=== PATIENT | female | born 1995 | race Caucasian/White ===

== ENCOUNTER 2018-01-23 11:05 | Emergency (ER) | payer SELFPAY ==
[~2018-01-23] VITALS: Ht 165.1 cm; Wt 50.0 kg
[2018-01-23] MEDS ORDERED: LORazepam 2 MG/ML, 1ML ONE (11:49)
[2018-01-23] MEDS ORDERED: ONDANSETRON ODT 4 MG ONE (11:51)
[2018-01-23] MEDS ORDERED: SODIUM CHLORIDE 0.9% 1,000ML IVBOLUS ONE ×2 (12:00→14:00)
[2018-01-23] MEDS ORDERED: ONDANSETRON ODT 4 MG PO ONE (12:00)
[2018-01-23] MEDS ORDERED: RANITIDINE 50 MG in SODIUM CHLORIDE 0.9% 100 ML IV ONE (12:00)
[2018-01-23] MEDS ORDERED: LORazepam 2 MG/ML, 1ML IVPush ONE (12:00)
[2018-01-23] MEDS ORDERED: SODIUM CHLORIDE FLUSH 10ML SYR IVF ONE (12:00)
[2018-01-23] MEDS ORDERED: FAMOTIDINE 20 MG/2 ML IVP ONE (12:00)
[2018-01-23 12:11] LABS: BASOPHILS # (AUTO) 0.07 x10^3/uL (0-0.1); BASOPHILS % (AUTO) 1 % (0-1); EOSINOPHILS % (AUTO) 0 % (1-7); LYMPHOCYTES % (AUTO) 9 % (22-44); MD NO; MEAN CORPUSCULAR HEMOGLOBIN 31.4 pg (27.0-34.8); MEAN CORPUSCULAR HGB CONC 34.6 g/dL (32.4-35.8); MEAN CORPUSCULAR VOLUME 90.8 fL (80-100); MONOCYTES # (AUTO) 1.28 x10^3/uL (0.2-0.8); MONOCYTES % (AUTO) 9 % (2-9); NEUTROPHILS # (AUTO) 11.61 x10^3/uL (1.8-6.8); NEUTROPHILS % (AUTO) 81 % (42-75); PLATELET COUNT 378 x10^3/uL (130-400); RED BLOOD COUNT 5.13 x10^6/uL (3.82-5.3); RED CELL DISTRIBUTION WIDTH 12.1 % (9.6-15.2)
[2018-01-23 12:20] LABS: ALBUMIN 4.7 g/dL (3.4-5.0); ANION GAP 10 mmol/L (5-15); CALCIUM 9.4 mg/dL (8.5-10.1); CHLORIDE 100 mmol/L (98-107)
[2018-01-23 12:26] LABS: ALANINE AMINOTRANSFERASE 23 U/L (12-78); ALKALINE PHOSPHATASE 45 U/L (45-117); BILIRUBIN,TOTAL 1.7 mg/dL (0.2-1.0); CREATININE 0.89 mg/dL (0.55-1.02); TOTAL PROTEIN 9.1 g/dL (6.4-8.2)
[2018-01-23 14:37] VITALS: BP 95/56
== END 2018-01-23 15:46 | disposition home or self-care (01) ==
LOC: ED 12:30
DX: E86.0 Dehydration (principal); R11.2 Nausea with vomiting, unspecified
CPT/HCPCS: 36415; 74021; 80053; 83690; 84703; 85025; 96361; 96365; 96375; 99285; J2060; J2780; J7030; Q0162

== ENCOUNTER 2019-05-23 22:04 | Emergency (ER) | payer SELFPAY ==
[~2019-05-23] VITALS: Ht 165.1 cm; Wt 52.3 kg
[2019-05-23] MEDS ORDERED: ESCI10TA10 PO (22:41)
--- NOTE | 2019-05-23 22:41 | NUR ---
PT HERE FOR N/V X 2 DAYS. VSS. PT RESTING WITH NO NEEDS AT THIS TIME. CALL LIGHT IN REACH
[2019-05-23 22:57] LABS: BASOPHILS # (AUTO) 0.03 x10^3/uL (0-0.1); BASOPHILS % (AUTO) 0 % (0-1); EOSINOPHILS # (AUTO) 0.09 x10^3/uL (0-0.4); EOSINOPHILS % (AUTO) 1 % (1-7); LYMPHOCYTES # (AUTO) 1.09 x10^3/uL (1-3.4); LYMPHOCYTES % (AUTO) 8 % (22-44); MD NO; MEAN CORPUSCULAR HEMOGLOBIN 31.4 pg (27.0-34.8); MEAN CORPUSCULAR HGB CONC 33.6 g/dL (32.4-35.8); MEAN CORPUSCULAR VOLUME 93.4 fL (80-100); MONOCYTES # (AUTO) 1.09 x10^3/uL (0.2-0.8); MONOCYTES % (AUTO) 8 % (2-9); NEUTROPHILS # (AUTO) 12.28 x10^3/uL (1.8-6.8); NEUTROPHILS % (AUTO) 84 % (42-75); PLATELET COUNT 353 x10^3/uL (130-400); RED BLOOD COUNT 5.09 x10^6/uL (3.82-5.3); RED CELL DISTRIBUTION WIDTH 12.1 % (9.6-15.2)
[2019-05-23 23:10] LABS: ALANINE AMINOTRANSFERASE 21 U/L (12-78); ALBUMIN 4.7 g/dL (3.4-5.0); ANION GAP 13 mmol/L (5-15); CALCIUM 9.4 mg/dL (8.5-10.1); CHLORIDE 97 mmol/L (98-107); CREATININE 0.93 mg/dL (0.55-1.02)
[2019-05-23 23:14] LABS: ALKALINE PHOSPHATASE 51 U/L (45-117); BILIRUBIN,TOTAL 1.4 mg/dL (0.2-1.0)
[2019-05-23] MEDS ORDERED: LORazepam 2 MG/ML, 1ML ONE (23:18)
[2019-05-23] MEDS ORDERED: FAMOTIDINE 20 MG/2 ML ONE (23:18)
[2019-05-23] MEDS ORDERED: FAMOTIDINE 20 MG/2 ML IVP ONE (23:30)
[2019-05-23] MEDS ORDERED: POTASSIUM CHLORIDE 20 MEQ in SODIUM CHLORIDE 0.9% 250 ML IV ONE (23:30)
[2019-05-23] MEDS ORDERED: SODIUM CHLORIDE 0.9% 1,000ML IVBOLUS ONE (23:30)
[2019-05-23] MEDS ORDERED: LORazepam 2 MG/ML, 1ML IVPush ONE (23:30)
--- NOTE | 2019-05-23 23:45 | NUR ---
PIV PLACED. PT MEDICATED AND FLUIDS RUNNING. VSS. CALL LIGHT IN REACH
--- NOTE | 2019-05-24 00:20 | NUR ---
PT RESTING. FLUIDS INFUSING. CALL LIGHT IN REACH
[2019-05-24] MEDS ORDERED: POTASSIUM CHLORIDE 20 MEQ TAB.ER.PRT PO ONE (00:30)
[2019-05-24] MEDS ORDERED: POTASSIUM CHLORIDE 20 MEQ TAB.ER.PRT ONE (00:36)
[2019-05-24 01:39] VITALS: BP 115/71
--- NOTE | 2019-05-24 01:41 | NUR ---
Patient given discharge instructions and they have confirmed that they understand the instructions. Patient ambulatory with steady gait.
== END 2019-05-24 01:44 | disposition home or self-care (01) ==
LOC: ED 22:58
DX: E87.6 Hypokalemia (principal); A09 Infectious gastroenteritis and colitis, unspecified; R11.2 Nausea with vomiting, unspecified; F43.10 Post-traumatic stress disorder, unspecified; F32.9 Major depressive disorder, single episode, unspecified; F41.1 Generalized anxiety disorder
CPT/HCPCS: 36415; 80053; 83690; 84703; 85025; 93005; 96365; 96366; 96375; 99284; J2060; J3480; J3490; J7030; J7050

== ENCOUNTER 2021-03-17 10:46 | Emergency (ER) | payer SELFPAY ==
[~2021-03-17] VITALS: Ht 165.1 cm; Wt 57.0 kg
[~2021-03-17 10:46] MED LIST: ESCI10TA10 PO
[2021-03-17] MEDS ORDERED: SODIUM CHLORIDE 0.9% 1,000ML IVBOLUS ONE (12:00)
[2021-03-17] MEDS ORDERED: ONDANSETRON 2MG/ML, 2ML IVPush ONE (12:00)
[2021-03-17] MEDS ORDERED: FAMOTIDINE 20 MG/2 ML IVPush ONE (12:00)
[2021-03-17 12:19] LABS: BASOPHILS % (AUTO) 1 % (0-1); EOSINOPHILS % (AUTO) 0 % (1-7); LYMPHOCYTES % (AUTO) 22 % (22-44); MEAN CORPUSCULAR HEMOGLOBIN 31.1 pg (27.0-34.8); MEAN CORPUSCULAR HGB CONC 34.9 g/dL (32.4-35.8); MEAN PLATELET VOLUME 7.8 fL (7.4-10.4); MONOCYTES % (AUTO) 9 % (2-9); NEUTROPHILS % (AUTO) 68 % (42-75); PLATELET COUNT 340 x10^3/uL (130-400); RED BLOOD COUNT 5.17 x10^6/uL (3.82-5.3); RED CELL DISTRIBUTION WIDTH 12.4 % (9.6-15.2)
[2021-03-17 12:20] LABS: MD NO
[2021-03-17 12:27] LABS: ALBUMIN 4.6 g/dL (3.4-5.0); ANION GAP 9 mmol/L (5-15); CALCIUM 9.6 mg/dL (8.5-10.1); CHLORIDE 100 mmol/L (98-107)
[2021-03-17 12:32] LABS: ALANINE AMINOTRANSFERASE 18 U/L (12-78); ALKALINE PHOSPHATASE 47 U/L (45-117); BILIRUBIN,TOTAL 1.4 mg/dL (0.2-1.0); CREATININE 0.77 mg/dL (0.55-1.02); TOTAL PROTEIN 8.5 g/dL (6.4-8.2)
--- NOTE | 2021-03-17 13:48 | NUR ---
PATIENT TO ROOM FROM 21
[2021-03-17] MEDS ORDERED: ONDANSETRON 2MG/ML, 2ML ONE (14:11)
[2021-03-17] MEDS ORDERED: FAMOTIDINE 20 MG/2 ML ONE (14:11)
--- NOTE | 2021-03-17 14:15 | NUR ---
Pt unable to give UA sample at this time. Aware of needed sample when able.
--- NOTE | 2021-03-17 14:29 | NUR ---
wire rigger completed. IV started with aseptic technique and IV meds given with NS 1 liter bolus running wide open. Lights dimmed, call light in reach, comfort measures provided, and pt using blanket from home.
[2021-03-17 16:28] VITALS: BP 103/64
== END 2021-03-17 16:30 | disposition home or self-care (01) ==
LOC: ED 14:02
DX: R11.2 Nausea with vomiting, unspecified (principal); R10.10 Upper abdominal pain, unspecified
CPT/HCPCS: 36415; 80053; 84703; 85025; 96361; 96374; 96375; 99284; J2405; J7030

== ENCOUNTER 2021-06-20 11:03 | Observation (INO) | payer SELFPAY ==
[~2021-06-20] VITALS: Ht 167.6 cm; Wt 63.9 kg
[2021-06-20] MEDS ORDERED: HALOPERIDOL 5 MG/ML IV ONE (12:00)
[2021-06-20] MEDS ORDERED: SODIUM CHLORIDE FLUSH 10ML SYR IVF ONE (12:00)
[2021-06-20] MEDS ORDERED: FAMOTIDINE 20 MG/2 ML IVPush ONE (12:00)
[2021-06-20] MEDS ORDERED: ONDANSETRON 2MG/ML, 2ML IVPush ONE (12:00)
[2021-06-20] MEDS ORDERED: SODIUM CHLORIDE 0.9% 1,000ML IVBOLUS ONE (12:00)
--- NOTE | 2021-06-20 12:30 | NUR ---
Pt to room from lobby at this time.
[2021-06-20] MEDS ORDERED: ONDANSETRON 2MG/ML, 2ML ONE (12:46)
[2021-06-20] MEDS ORDERED: HALOPERIDOL 5 MG/ML ONE (12:46)
[2021-06-20] MEDS ORDERED: FAMOTIDINE 20 MG/2 ML ONE (12:46)
[2021-06-20 12:52] LABS: BASOPHILS % (AUTO) 0 % (0-1); EOSINOPHILS % (AUTO) 0 % (1-7); LYMPHOCYTES % (AUTO) 15 % (22-44); MEAN CORPUSCULAR HEMOGLOBIN 31.1 pg (27.0-34.8); MEAN CORPUSCULAR HGB CONC 35.3 g/dL (32.4-35.8); MEAN PLATELET VOLUME 8.3 fL (7.4-10.4); MONOCYTES % (AUTO) 11 % (2-9); NEUTROPHILS % (AUTO) 73 % (42-75); PLATELET COUNT 415 x10^3/uL (130-400); RED BLOOD COUNT 5.81 x10^6/uL (3.82-5.3); RED CELL DISTRIBUTION WIDTH 12.1 % (9.6-15.2)
[2021-06-20 12:55] LABS: ALBUMIN 4.9 g/dL (3.4-5.0); CALCIUM 9.6 mg/dL (8.5-10.1); CHLORIDE 96 mmol/L (98-107)
[2021-06-20 13:01] LABS: ALANINE AMINOTRANSFERASE 18 U/L (12-78); ALKALINE PHOSPHATASE 56 U/L (45-117); BILIRUBIN,TOTAL 1.6 mg/dL (0.2-1.0); CREATININE 1.02 mg/dL (0.55-1.02); TOTAL PROTEIN 9.8 g/dL (6.4-8.2)
--- NOTE | 2021-06-20 13:02 | NUR ---
PT MEDICATED PER MAR.
[2021-06-20 13:08] LABS: ANION GAP 12 mmol/L (5-15)
[2021-06-20] MEDS ORDERED: NS + 40MEQ KCL 1,000 ML IV ONE (13:18)
[2021-06-20] MEDS ORDERED: SODIUM CHLORIDE FLUSH 10ML SYR IVF PRN (13:30)
[2021-06-20] MEDS ORDERED: NS + 40MEQ KCL 1,000 ML IV SCH (13:30)
[2021-06-20] MEDS ORDERED: POTASSIUM CHLORIDE 20 MEQ in SODIUM CHLORIDE 0.9% 1,000 ML IV ONE (14:00)
--- NOTE | 2021-06-20 14:34 | NUR ---
REPORT TO [facility].
[2021-06-20] MEDS ORDERED: PROMETHAZINE 25 MG/ML, 1ML IM PRN (15:00)
[2021-06-20] MEDS ORDERED: POTASSIUM CHLORIDE 60 MEQ in SODIUM CHLORIDE 0.9% 1,000 ML IV ONE (15:00)
[2021-06-20] MEDS ORDERED: ACETAMINOPHEN 325 MG TABLET PO PRN (15:00)
[2021-06-20] MEDS ORDERED: ONDANSETRON 2MG/ML, 2ML IVPush PRN (15:00)
[2021-06-20] MEDS ORDERED: ONDANSETRON ODT 4 MG PO PRN (15:00)
[2021-06-20] MEDS ORDERED: NS + 20MEQ KCL 1,000 ML IV SCH (15:00)
[2021-06-20 16:30] VITALS: BP 104/66
[2021-06-20] MEDS: NS + 40MEQ KCL 1,000 ML IV SCH (19:39)
[2021-06-20 20:13] VITALS: BP 104/68
[2021-06-21 00:13] VITALS: BP 97/63
[2021-06-21] MEDS: NS + 40MEQ KCL 1,000 ML IV SCH (03:54)
[2021-06-21 06:20] VITALS: BP 122/81
[2021-06-21 06:32] LABS: CHLORIDE 111 mmol/L (98-107)
[2021-06-21 06:37] LABS: ANION GAP 8 mmol/L (5-15); CALCIUM 8.6 mg/dL (8.5-10.1); CREATININE 0.77 mg/dL (0.55-1.02)
[2021-06-21] MEDS ORDERED: PANTOPRAZOLE 40 MG IV IVPush SCH (07:30)
[2021-06-21] MEDS ORDERED: ONDA4TAB13 PO (08:38)
== END 2021-06-21 10:35 | disposition home or self-care (01) ==
LOC: ED 13:16 → INTOOBSV 13:17 → 3N 13:17 → ED 13:17 → UNDOADMIN 16:02 → 3N 16:02
PROVIDERS: ADMIT Family Medicine; ATTEND Family Medicine
DX: R11.2 Nausea with vomiting, unspecified (principal); E87.6 Hypokalemia; E86.0 Dehydration; D75.1 Secondary polycythemia; F12.90 Cannabis use, unspecified, uncomplicated; F41.8 Other specified anxiety disorders; F43.10 Post-traumatic stress disorder, unspecified; Z79.899 Other long term (current) drug therapy
CPT/HCPCS: 36415; 80048; 80053; 83735; 84703; 85025; 93005; 96365; 96366; 96372; 96375; 96376; 99284; C9113; G0378; J1630; J2405; J2550; J3480; J7030; 96374; Q0162